=== PATIENT | female | born 1935 | race Caucasian/White ===

== ENCOUNTER 2016-06-15 16:43 | Inpatient (IN) | payer MEDICARE, OTHER ==
[~2016-06-15 16:43] MED LIST: ALDACTONE25 MG; ASPIRIN325 MG; AVANDIA8 MG; BENADRYL25 M3 PO; BENAZEPRIL HCL5 M2 PO; CALCIUM 1,0001 EAC1 PO; COREG12.5 M1 PO; COREG25 MG; COUMADIN3 M1 PO; DAPTOMYCIN500 MG IV; FEOSOL325 M1 PO; FISH OIL 1,0001 CA; GLUCOPHAGE XR500 M1 PO; GLUCOPHAGE XR500 MG; HYDROCHLOROTHIA25 MG; LASIX20 M1 PO; LIPITOR20 M1 PO; LIPITOR20 MG; LOTENSIN10 MG; MAGNESIUM OXID400 M1 PO; MEDROL4 M1 PO; OYST CAL D TABL; RANITIDINE HCL150 M3 PO; THERAGRAN-M PR1 EAC1 PO; VITAMIN B122500 MCG PO; VITAMIN C1000 M1 PO; VITAMIN D31000 UNI3 PO; ZINC50 M2 PO; ZYLOPRIM100 M1 PO
[2016-06-15] MEDS ORDERED: MAGNESIUM OXID400 M1 PO (17:32)
[2016-06-15] MEDS ORDERED: TYLENOL EXTRA500 M1 PO (17:32)
[2016-06-15] MEDS ORDERED: COREG6.25 M1 PO (17:32)
[2016-06-15] MEDS ORDERED: GLUCOPHAGE500 M3 PO (17:34)
[2016-06-15 19:30] LABS: BASO % 0.1 % (0-2); HGB-HEMOGLOBIN 6.6 gm/dl (12.0-15.5); IMMATURE GRANULOCYTES ABSOLUTE 0.13 tho/cmm (0-0.03); IMMATURE GRANULOCYTES PERCENT 0.7 % (0-0.3); LYMPH % 3.9 % (20-45); LYMPH ABSOLUTE COUNT 0.7 tho/cmm (0.8-4.5); MCH (MEAN CORPUSCULAR HGB) 31.9 pg (28.0-32.0); MEAN PLATELET VOLUME 12.3 cmc (9.4-12.4); MONOCYTE ABSOLUTE COUNT 0.4 tho/cmm (0.0-1.2); NEUTROPHIL ABSOLUTE COUNT 16.7 tho/cmm (1.6-8.0); NEUTROPHIL-AUTOMATED 16.7 tho/cmm (1.6-8.0); NEUTROPHILS % 93.3 % (40-80); RED BLOOD COUNT 2.07 mil/cmm (4.00-5.20); RED CELL DISTRIBUTION WIDTH 18.9 % (12.4-16.4); WHITE BLOOD COUNT 17.9 tho/cmm (4.0-10.0)
[2016-06-15 19:30] LABS: ABG CO2 ARTERIAL 20 mmol/L (21-27); ARTERIAL BLD GAS O2 SATURATION 98 % (95-98); ARTERIAL BLOOD GAS PCO2 28 mmHg (32-45); ARTERIAL PO2 95 mmHg (70-100); BICARBONATE 19 mmol/L (21-28); BLOOD GAS BASE EXCESS -4 mM/L (-/+3); PH 7.45 Units (7.35-7.45)
[2016-06-15 19:35] LABS: HCT-HEMATOCRIT 20.7 % (34.0-49.0); MCHC MEAN CORPUSCULAR HGB CONC 31.9 % (32.0-36.0); PLATELET COUNT 39 tho/cmm (150-450)
[2016-06-15 19:36] LABS: PROTHROMBIN TIME 78.6 SECONDS (9.0-13.6)
[2016-06-15 19:39] LABS: PARTIAL THROMBOPLASTIN TIME 40 SECONDS (22-38)
[2016-06-15 19:55] LABS: ALB/GLOB RATIO 0.5 (0.8-2.0); ALBUMIN 2.1 g/dl (3.5-5.0); ALKALINE PHOSPHATASE 67 U/L (33-138); ALT/SGPT 10 U/L (12-78); ANION GAP 14 mmol/L (0-20); AST/SGOT 15 U/L (10-40); BILIRUBIN,TOTAL 1.4 mg/dl (0-1.5); BLOOD UREA NITROGEN 35 mg/dl (6-24); CALCIUM 7.6 mg/dl (8.5-10.5); CARBON DIOXIDE-VENOUS 22 mmol/L (22-32); CHLORIDE 104 mmol/l (96-110); CREATININE 1.65 mg/dl (0.50-1.10); GLUCOSE 166 mg/dL (70-110); POTASSIUM 4.3 mmol/L (3.7-5.1); SODIUM 136 mmol/L (135-145); eGFR VALUE FOR BLACK 34 mL/Min
[2016-06-15 20:05] LABS: INR 6.4 INR (0.9-1.1)
[2016-06-15 20:13] LABS: PROCALCITONIN 7.64 ng/ml (0.05-0.09)
[2016-06-16 04:54] LABS: ANION GAP 15 mmol/L (0-20); BLOOD UREA NITROGEN 35 mg/dl (6-24); CARBON DIOXIDE-VENOUS 21 mmol/L (22-32); CHLORIDE 105 mmol/l (96-110); CREATININE 1.62 mg/dl (0.50-1.10); GLUCOSE 137 mg/dL (70-110); POTASSIUM 3.9 mmol/L (3.7-5.1); SODIUM 137 mmol/L (135-145); eGFR VALUE FOR BLACK 35 mL/Min
[2016-06-16 05:15] LABS: HGB-HEMOGLOBIN 6.2 gm/dl (12.0-15.5); IMMATURE GRANULOCYTES ABSOLUTE 0.08 tho/cmm (0-0.03); IMMATURE GRANULOCYTES PERCENT 0.6 % (0-0.3); LYMPH ABSOLUTE COUNT 0.9 tho/cmm (0.8-4.5); MCH (MEAN CORPUSCULAR HGB) 32.3 pg (28.0-32.0); MEAN PLATELET VOLUME 12.3 cmc (9.4-12.4); MONO % 4.3 % (0-12); MONOCYTE ABSOLUTE COUNT 0.5 tho/cmm (0.0-1.2); NEUTROPHILS % 88.1 % (40-80); RED BLOOD COUNT 1.92 mil/cmm (4.00-5.20); RED CELL DISTRIBUTION WIDTH 19.1 % (12.4-16.4); WHITE BLOOD COUNT 12.5 tho/cmm (4.0-10.0)
[2016-06-16 05:25] LABS: INR 7.7 INR (0.9-1.1); PROTHROMBIN TIME 95.7 SECONDS (9.0-13.6)
[2016-06-16 05:32] LABS: HCT-HEMATOCRIT 19.4 % (34.0-49.0)
[2016-06-16 05:33] LABS: PLATELET COUNT 37 tho/cmm (150-450)
[2016-06-16 08:02] LABS: URINE BILIRUBIN NEGATIVE (NEG); URINE BLOOD MODERATE (NEG); URINE GLUCOSE (UA) NEGATIVE (NEG); URINE KETONE NEGATIVE (NEG); URINE LEUKOCYTE ESTERASE NEGATIVE (NEG); URINE NITRITE NEGATIVE (NEG); URINE PROTEIN MODERATE (NEG); URINE SPECIFIC GRAVITY 1.015 (1.003-1.030)
[2016-06-16 08:06] LABS: URINE APPEARANCE HAZY; URINE COLOR DARK YELLOW
[2016-06-16 08:12] LABS: URINE TOTAL PROTEIN-RANDOM 68.7 mg/dl (<11.8)
[2016-06-16 08:14] LABS: URINE BACTERIA 1+; URINE RBC 0-2 /[HPF] (0-5); URINE WBC 0 /[HPF] (0-5)
[2016-06-16 11:52] LABS: URINE PRT/CR RATIO 0.62 Ratio (0.0-0.20)
[2016-06-17 03:54] LABS: EOS % 0.2 % (0-7); HGB-HEMOGLOBIN 6.9 gm/dl (12.0-15.5); IMMATURE GRANULOCYTES ABSOLUTE 0.03 tho/cmm (0-0.03); IMMATURE GRANULOCYTES PERCENT 0.5 % (0-0.3); LYMPH % 14.6 % (20-45); LYMPH ABSOLUTE COUNT 0.9 tho/cmm (0.8-4.5); MCH (MEAN CORPUSCULAR HGB) 32.4 pg (28.0-32.0); MCV (MEAN CELL VOLUME) 98.6 fl (82.0-96.0); MEAN PLATELET VOLUME 11.5 cmc (9.4-12.4); MONOCYTE ABSOLUTE COUNT 0.3 tho/cmm (0.0-1.2); NEUTROPHIL ABSOLUTE COUNT 4.8 tho/cmm (1.6-8.0); NEUTROPHIL-AUTOMATED 4.8 tho/cmm (1.6-8.0); NEUTROPHILS % 79.7 % (40-80); RED BLOOD COUNT 2.13 mil/cmm (4.00-5.20); RED CELL DISTRIBUTION WIDTH 19.5 % (12.4-16.4)
[2016-06-17 04:03] LABS: ANION GAP 15 mmol/L (0-20); BLOOD UREA NITROGEN 27 mg/dl (6-24); CALCIUM 6.9 mg/dl (8.5-10.5); CARBON DIOXIDE-VENOUS 20 mmol/L (22-32); CHLORIDE 105 mmol/l (96-110); CREATININE 1.33 mg/dl (0.50-1.10); GLUCOSE 147 mg/dL (70-110); POTASSIUM 3.4 mmol/L (3.7-5.1); SODIUM 137 mmol/L (135-145); eGFR VALUE FOR BLACK 44 mL/Min
[2016-06-17 04:06] LABS: MCHC MEAN CORPUSCULAR HGB CONC 32.9 % (32.0-36.0)
[2016-06-17 04:09] LABS: PLATELET COUNT 35 tho/cmm (150-450)
[2016-06-17 05:53] LABS: PROCALCITONIN 5.37 ng/ml (0.05-0.09)
[2016-06-17 08:16] LABS: INR 1.5 INR (0.9-1.1); PROTHROMBIN TIME 18.2 SECONDS (9.0-13.6)
[2016-06-17 17:48] LABS: HGB-HEMOGLOBIN 9.4 gm/dl (12.0-15.5)
[2016-06-18 05:07] LABS: EOS % 0.2 % (0-7); IMMATURE GRANULOCYTES ABSOLUTE 0.04 tho/cmm (0-0.03); IMMATURE GRANULOCYTES PERCENT 0.8 % (0-0.3); INR 1.3 INR (0.9-1.1); LYMPH % 18.3 % (20-45); LYMPH ABSOLUTE COUNT 0.9 tho/cmm (0.8-4.5); MCV (MEAN CELL VOLUME) 93.8 fl (82.0-96.0); MEAN PLATELET VOLUME 12.6 cmc (9.4-12.4); MONO % 3.6 % (0-12); MONOCYTE ABSOLUTE COUNT 0.2 tho/cmm (0.0-1.2); NEUTROPHIL ABSOLUTE COUNT 3.6 tho/cmm (1.6-8.0); NEUTROPHIL-AUTOMATED 3.6 tho/cmm (1.6-8.0); NEUTROPHILS % 77.1 % (40-80); PROTHROMBIN TIME 15.8 SECONDS (9.0-13.6); RED BLOOD COUNT 2.92 mil/cmm (4.00-5.20); WHITE BLOOD COUNT 4.7 tho/cmm (4.0-10.0)
[2016-06-18 05:13] LABS: HCT-HEMATOCRIT 27.4 % (34.0-49.0); MCHC MEAN CORPUSCULAR HGB CONC 32.8 % (32.0-36.0)
[2016-06-18 05:14] LABS: MCH (MEAN CORPUSCULAR HGB) 30.8 pg (28.0-32.0)
[2016-06-18 05:25] LABS: ANION GAP 15 mmol/L (0-20); BLOOD UREA NITROGEN 27 mg/dl (6-24); CALCIUM 7.5 mg/dl (8.5-10.5); CARBON DIOXIDE-VENOUS 20 mmol/L (22-32); CHLORIDE 107 mmol/l (96-110); GLUCOSE 110 mg/dL (70-110); POTASSIUM 3.6 mmol/L (3.7-5.1); SODIUM 138 mmol/L (135-145)
[2016-06-18 05:26] LABS: CREATININE 1.11 mg/dl (0.50-1.10); eGFR VALUE FOR BLACK 55 mL/Min
[2016-06-18 05:30] LABS: PLATELET COUNT 37 tho/cmm (150-450)
[2016-06-19 05:48] LABS: PROTHROMBIN TIME 21.9 SECONDS (9.0-13.6)
[2016-06-19 05:50] LABS: HCT-HEMATOCRIT 26.8 % (34.0-49.0); HGB-HEMOGLOBIN 8.8 gm/dl (12.0-15.5); IMMATURE GRANULOCYTES ABSOLUTE 0.02 tho/cmm (0-0.03); IMMATURE GRANULOCYTES PERCENT 0.5 % (0-0.3); LYMPH % 16.9 % (20-45); LYMPH ABSOLUTE COUNT 0.7 tho/cmm (0.8-4.5); MCHC MEAN CORPUSCULAR HGB CONC 32.8 % (32.0-36.0); MCV (MEAN CELL VOLUME) 94.4 fl (82.0-96.0); MEAN PLATELET VOLUME 11.9 cmc (9.4-12.4); MONO % 3.5 % (0-12); MONOCYTE ABSOLUTE COUNT 0.2 tho/cmm (0.0-1.2); NEUTROPHIL ABSOLUTE COUNT 3.4 tho/cmm (1.6-8.0); NEUTROPHIL-AUTOMATED 3.4 tho/cmm (1.6-8.0); NEUTROPHILS % 79.1 % (40-80); RED BLOOD COUNT 2.84 mil/cmm (4.00-5.20); RED CELL DISTRIBUTION WIDTH 18.6 % (12.4-16.4); WHITE BLOOD COUNT 4.3 tho/cmm (4.0-10.0)
[2016-06-19 05:56] LABS: ANION GAP 12 mmol/L (0-20); BLOOD UREA NITROGEN 28 mg/dl (6-24); CALCIUM 7.9 mg/dl (8.5-10.5); CARBON DIOXIDE-VENOUS 23 mmol/L (22-32); CHLORIDE 108 mmol/l (96-110); CREATININE 1.05 mg/dl (0.50-1.10); GLUCOSE 104 mg/dL (70-110); POTASSIUM 3.9 mmol/L (3.7-5.1); SODIUM 139 mmol/L (135-145); eGFR VALUE FOR BLACK 59 mL/Min
[2016-06-19 05:57] LABS: INR 1.9 INR (0.9-1.1)
[2016-06-19 06:02] LABS: PLATELET COUNT 35 tho/cmm (150-450)
[2016-06-20 05:00] LABS: EOS % 0.3 % (0-7); HCT-HEMATOCRIT 27.3 % (34.0-49.0); HGB-HEMOGLOBIN 8.9 gm/dl (12.0-15.5); IMMATURE GRANULOCYTES ABSOLUTE 0.02 tho/cmm (0-0.03); IMMATURE GRANULOCYTES PERCENT 0.5 % (0-0.3); LYMPH % 21.4 % (20-45); LYMPH ABSOLUTE COUNT 0.8 tho/cmm (0.8-4.5); MCH (MEAN CORPUSCULAR HGB) 31.1 pg (28.0-32.0); MCHC MEAN CORPUSCULAR HGB CONC 32.6 % (32.0-36.0); MCV (MEAN CELL VOLUME) 95.5 fl (82.0-96.0); MEAN PLATELET VOLUME 10.8 cmc (9.4-12.4); MONO % 4.1 % (0-12); MONOCYTE ABSOLUTE COUNT 0.2 tho/cmm (0.0-1.2); NEUTROPHIL ABSOLUTE COUNT 2.7 tho/cmm (1.6-8.0); NEUTROPHIL-AUTOMATED 2.7 tho/cmm (1.6-8.0); NEUTROPHILS % 73.7 % (40-80); RED BLOOD COUNT 2.86 mil/cmm (4.00-5.20); RED CELL DISTRIBUTION WIDTH 18.1 % (12.4-16.4); WHITE BLOOD COUNT 3.7 tho/cmm (4.0-10.0)
[2016-06-20 05:12] LABS: PLATELET COUNT 32 tho/cmm (150-450)
[2016-06-20 05:19] LABS: INR 2.6 INR (0.9-1.1)
[2016-06-20 05:24] LABS: PROTHROMBIN TIME 31.4 SECONDS (9.0-13.6)
[2016-06-20 05:36] LABS: ANION GAP 11 mmol/L (0-20); BLOOD UREA NITROGEN 23 mg/dl (6-24); CALCIUM 8.1 mg/dl (8.5-10.5); CARBON DIOXIDE-VENOUS 25 mmol/L (22-32); CHLORIDE 108 mmol/l (96-110); CREATININE 1.13 mg/dl (0.50-1.10); GLUCOSE 98 mg/dL (70-110); MAGNESIUM 1.2 mg/dl (1.3-2.6); POTASSIUM 3.9 mmol/L (3.7-5.1); SODIUM 140 mmol/L (135-145); eGFR VALUE FOR BLACK 54 mL/Min
[2016-06-21 05:04] LABS: EOS % 0.3 % (0-7); HGB-HEMOGLOBIN 8.9 gm/dl (12.0-15.5); IMMATURE GRANULOCYTES ABSOLUTE 0.02 tho/cmm (0-0.03); IMMATURE GRANULOCYTES PERCENT 0.5 % (0-0.3); LYMPH % 22.2 % (20-45); LYMPH ABSOLUTE COUNT 0.8 tho/cmm (0.8-4.5); MCH (MEAN CORPUSCULAR HGB) 31.6 pg (28.0-32.0); MCV (MEAN CELL VOLUME) 95.7 fl (82.0-96.0); MEAN PLATELET VOLUME 11.3 cmc (9.4-12.4); MONO % 4.3 % (0-12); MONOCYTE ABSOLUTE COUNT 0.2 tho/cmm (0.0-1.2); NEUTROPHIL ABSOLUTE COUNT 2.7 tho/cmm (1.6-8.0); NEUTROPHIL-AUTOMATED 2.7 tho/cmm (1.6-8.0); NEUTROPHILS % 72.7 % (40-80); RED BLOOD COUNT 2.82 mil/cmm (4.00-5.20); RED CELL DISTRIBUTION WIDTH 17.7 % (12.4-16.4); WHITE BLOOD COUNT 3.7 tho/cmm (4.0-10.0)
[2016-06-21 05:15] LABS: ANION GAP 8 mmol/L (0-20); BLOOD UREA NITROGEN 22 mg/dl (6-24); CALCIUM 8.1 mg/dl (8.5-10.5); CARBON DIOXIDE-VENOUS 27 mmol/L (22-32); CHLORIDE 106 mmol/l (96-110); CREATININE 1.06 mg/dl (0.50-1.10); GLUCOSE 100 mg/dL (70-110); PLATELET COUNT 39 tho/cmm (150-450); POTASSIUM 3.7 mmol/L (3.7-5.1); SODIUM 137 mmol/L (135-145); eGFR VALUE FOR BLACK 58 mL/Min
[2016-06-21 05:33] LABS: INR 3.6 INR (0.9-1.1)
[2016-06-21] MEDS ORDERED: SULFAMYLON SOL250 M1 AP (11:20)
[2016-06-21] MEDS ORDERED: BACTRIM DS TAB1 EAC2 PO (11:22)
[2016-06-21] MEDS ORDERED: AUGMENTIN 875-1 EAC2 PO (11:22)
== END 2016-06-21 17:03 | disposition home health service (06) | DRG 871 ==
LOC: CCU 16:43 → PCUB 06-17 17:32
PROVIDERS: Family Medicine; Internal Medicine Cardiovascular Disease; Internal Medicine Critical Care Medicine; ADMIT Internal Medicine
DX: A41.9 Sepsis, unspecified organism (principal); R65.21 Severe sepsis with septic shock; N17.9 Acute kidney failure, unspecified; I42.9 Cardiomyopathy, unspecified; D69.6 Thrombocytopenia, unspecified; E11.22 Type 2 diabetes mellitus with diabetic chronic kidney disease; I13.10 Hypertensive heart and chronic kidney disease without heart failure, with stage 1 through stage 4 chronic kidney disease, or unspecified chronic kidney disease; N18.3 Chronic kidney disease, stage 3 (moderate); E11.622 Type 2 diabetes mellitus with other skin ulcer; L03.90 Cellulitis, unspecified; L97.119 Non-pressure chronic ulcer of right thigh with unspecified severity; D46.9 Myelodysplastic syndrome, unspecified; D50.9 Iron deficiency anemia, unspecified; E78.5 Hyperlipidemia, unspecified; G47.33 Obstructive sleep apnea (adult) (pediatric); I36.1 Nonrheumatic tricuspid (valve) insufficiency; I27.2 Other secondary pulmonary hypertension; I25.10 Atherosclerotic heart disease of native coronary artery without angina pectoris; I48.0 Paroxysmal atrial fibrillation; Z95.810 Presence of automatic (implantable) cardiac defibrillator; Z87.891 Personal history of nicotine dependence; Z86.73 Personal history of transient ischemic attack (TIA), and cerebral infarction without residual deficits
CPT/HCPCS: C1751; G8978-GP-CJ; G8979-GP-CI; G8987-GO-CK; G8988-GO-CJ; J1815; J2405; J2543; J3370; J3430; J7030; J7050; J7999; P9016; P9045

== ENCOUNTER 2016-06-28 16:38 | Inpatient (IN) | payer MEDICARE, OTHER ==
[~2016-06-28 16:38] MED LIST changes: +AUGMENTIN 875-1 EAC2 PO; +BACTRIM DS TAB1 EAC2 PO; +COREG6.25 M1 PO; +GLUCOPHAGE500 M3 PO; +SULFAMYLON SOL250 M1 AP; +TYLENOL EXTRA500 M1 PO
[2016-06-29 02:07] LABS: URINE BILIRUBIN NEGATIVE (NEG); URINE BLOOD LARGE (NEG); URINE GLUCOSE (UA) NEGATIVE (NEG); URINE KETONE SMALL (NEG); URINE LEUKOCYTE ESTERASE POSITIVE (NEG); URINE NITRITE NEGATIVE (NEG); URINE PROTEIN MODERATE (NEG); URINE SPECIFIC GRAVITY 1.025 (1.003-1.030)
[2016-06-29 02:45] LABS: URINE APPEARANCE CLOUDY; URINE COLOR BROWN
[2016-06-29 02:47] LABS: URINE EPITHELIAL CELLS 0-1 /[HPF] (0-10); URINE RBC 0-1 /[HPF] (0-5); URINE WBC 0-1 /[HPF] (0-5)
[2016-06-29 02:48] LABS: URINE AMORPHOUS 2+
[2016-06-29 05:34] LABS: HCT-HEMATOCRIT 30.1 % (34.0-49.0); HGB-HEMOGLOBIN 9.7 gm/dl (12.0-15.5); IMMATURE GRANULOCYTES ABSOLUTE 0.06 tho/cmm (0-0.03); IMMATURE GRANULOCYTES PERCENT 1.1 % (0-0.3); LYMPH % 12.5 % (20-45); LYMPH ABSOLUTE COUNT 0.7 tho/cmm (0.8-4.5); MCH (MEAN CORPUSCULAR HGB) 31.2 pg (28.0-32.0); MCHC MEAN CORPUSCULAR HGB CONC 32.2 % (32.0-36.0); MCV (MEAN CELL VOLUME) 96.8 fl (82.0-96.0); MEAN PLATELET VOLUME 11.4 cmc (9.4-12.4); MONO % 1.1 % (0-12); MONOCYTE ABSOLUTE COUNT 0.1 tho/cmm (0.0-1.2); NEUTROPHIL ABSOLUTE COUNT 4.6 tho/cmm (1.6-8.0); NEUTROPHIL-AUTOMATED 4.6 tho/cmm (1.6-8.0); NEUTROPHILS % 85.3 % (40-80); RED BLOOD COUNT 3.11 mil/cmm (4.00-5.20); RED CELL DISTRIBUTION WIDTH 18.9 % (12.4-16.4); WHITE BLOOD COUNT 5.4 tho/cmm (4.0-10.0)
[2016-06-29 05:37] LABS: PLATELET COUNT 48 tho/cmm (150-450)
[2016-06-29 05:42] LABS: INR 4.6 INR (0.9-1.1); PROTHROMBIN TIME 55.5 SECONDS (9.0-13.6)
[2016-06-29 06:05] LABS: MAGNESIUM 1.7 mg/dl (1.3-2.6); PHOSPHOROUS 3.6 mg/dl (2.5-4.9)
[2016-06-29 06:08] LABS: ALB/GLOB RATIO 0.6 (0.8-2.0); ALBUMIN 2.9 g/dl (3.5-5.0); ALKALINE PHOSPHATASE 85 U/L (33-138); ALT/SGPT 21 U/L (12-78); ANION GAP 16 mmol/L (0-20); AST/SGOT 26 U/L (10-40); BILIRUBIN,TOTAL 1.1 mg/dl (0-1.5); BLOOD UREA NITROGEN 17 mg/dl (6-24); CARBON DIOXIDE-VENOUS 21 mmol/L (22-32); CHLORIDE 107 mmol/l (96-110); CREATINE PHOSPHOKINASE (CPK) 136 U/L (21-215); CREATININE 1.24 mg/dl (0.50-1.10); GLUCOSE 154 mg/dL (70-110); POTASSIUM 4.7 mmol/L (3.7-5.1); SODIUM 139 mmol/L (135-145); eGFR VALUE FOR BLACK 48 mL/Min
[2016-06-29] MEDS ORDERED: ACID CONTROL150 M2 PO (17:01)
[2016-06-29] MEDS ORDERED: GLUCOPHAGE500 M3 PO ×2 (17:01→17:02)
[2016-06-29] MEDS ORDERED: COUMADIN3 M1 PO (17:03)
[2016-06-29] MEDS ORDERED: VITAMIN D31000 UNI4 PO (17:03)
[2016-06-29] MEDS ORDERED: VITAMIN B-121000 MC1 PO (17:04)
[2016-06-29] MEDS ORDERED: ASCORBIC ACID500 M2 PO (17:04)
[2016-06-29] MEDS ORDERED: TYLENOL EXTRA500 M1 PO (17:05)
[2016-06-29] MEDS ORDERED: SULFAMYLON60 GM TOP (17:06)
[2016-06-29] MEDS ORDERED: MAGNESIUM200 M1 PO (17:07)
[2016-06-29] MEDS ORDERED: CERTAVITE-ANTI1 EACH PO (17:07)
[2016-06-29] MEDS ORDERED: LASIX20 M1 PO (17:08)
[2016-06-29] MEDS ORDERED: CALCIUM 500 +1 EA10 PO (17:09)
[2016-06-29] MEDS ORDERED: COREG12.5 M1 PO (17:09)
[2016-06-29] MEDS ORDERED: BENAZEPRIL HCL5 M2 PO (17:10)
[2016-06-29] MEDS ORDERED: ATORVASTATIN CA20 M1 PO (17:10)
[2016-06-29] MEDS ORDERED: ALLOPURINOL300 M1 PO (17:10)
[2016-06-30 06:23] LABS: HCT-HEMATOCRIT 26.8 % (34.0-49.0); HGB-HEMOGLOBIN 8.6 gm/dl (12.0-15.5); IMMATURE GRANULOCYTES ABSOLUTE 0.04 tho/cmm (0-0.03); IMMATURE GRANULOCYTES PERCENT 0.8 % (0-0.3); LYMPH % 14.7 % (20-45); LYMPH ABSOLUTE COUNT 0.7 tho/cmm (0.8-4.5); MCHC MEAN CORPUSCULAR HGB CONC 32.1 % (32.0-36.0); MCV (MEAN CELL VOLUME) 99.6 fl (82.0-96.0); MONO % 2.4 % (0-12); MONOCYTE ABSOLUTE COUNT 0.1 tho/cmm (0.0-1.2); NEUTROPHIL ABSOLUTE COUNT 4.1 tho/cmm (1.6-8.0); NEUTROPHIL-AUTOMATED 4.1 tho/cmm (1.6-8.0); NEUTROPHILS % 82.1 % (40-80); RED BLOOD COUNT 2.69 mil/cmm (4.00-5.20); RED CELL DISTRIBUTION WIDTH 19.6 % (12.4-16.4)
[2016-06-30 06:31] LABS: ANION GAP 15 mmol/L (0-20); BLOOD UREA NITROGEN 23 mg/dl (6-24); CALCIUM 8.4 mg/dl (8.5-10.5); CARBON DIOXIDE-VENOUS 21 mmol/L (22-32); CHLORIDE 112 mmol/l (96-110); CREATININE 1.25 mg/dl (0.50-1.10); GLUCOSE 112 mg/dL (70-110); POTASSIUM 4.5 mmol/L (3.7-5.1); SODIUM 143 mmol/L (135-145); eGFR VALUE FOR BLACK 48 mL/Min
[2016-06-30 06:37] LABS: PARTIAL THROMBOPLASTIN TIME 37 SECONDS (22-38)
[2016-06-30 06:56] LABS: INR 5.7 INR (0.9-1.1); PROTHROMBIN TIME 70.2 SECONDS (9.0-13.6)
[2016-07-01 06:07] LABS: HCT-HEMATOCRIT 27.1 % (34.0-49.0); HGB-HEMOGLOBIN 8.5 gm/dl (12.0-15.5); IMMATURE GRANULOCYTES ABSOLUTE 0.04 tho/cmm (0-0.03); IMMATURE GRANULOCYTES PERCENT 0.8 % (0-0.3); MCH (MEAN CORPUSCULAR HGB) 31.6 pg (28.0-32.0); MCHC MEAN CORPUSCULAR HGB CONC 31.4 % (32.0-36.0); MCV (MEAN CELL VOLUME) 100.7 fl (82.0-96.0); MONO % 3.8 % (0-12); MONOCYTE ABSOLUTE COUNT 0.2 tho/cmm (0.0-1.2); NEUTROPHIL ABSOLUTE COUNT 3.8 tho/cmm (1.6-8.0); NEUTROPHIL-AUTOMATED 3.8 tho/cmm (1.6-8.0); NEUTROPHILS % 75.4 % (40-80); RED BLOOD COUNT 2.69 mil/cmm (4.00-5.20); RED CELL DISTRIBUTION WIDTH 19.9 % (12.4-16.4)
[2016-07-01 06:10] LABS: PLATELET COUNT 47 tho/cmm (150-450)
[2016-07-01 06:13] LABS: ANION GAP 14 mmol/L (0-20); BLOOD UREA NITROGEN 26 mg/dl (6-24); CALCIUM 8.4 mg/dl (8.5-10.5); CARBON DIOXIDE-VENOUS 22 mmol/L (22-32); CHLORIDE 115 mmol/l (96-110); CREATININE 1.13 mg/dl (0.50-1.10); GLUCOSE 102 mg/dL (70-110); POTASSIUM 4.3 mmol/L (3.7-5.1); SODIUM 147 mmol/L (135-145); eGFR VALUE FOR BLACK 54 mL/Min
[2016-07-01 06:17] LABS: INR 1.9 INR (0.9-1.1); PARTIAL THROMBOPLASTIN TIME 26 SECONDS (22-38); PROTHROMBIN TIME 22.7 SECONDS (9.0-13.6)
[2016-07-01 06:31] LABS: PLATELET COUNT 48 tho/cmm (150-450)
[2016-07-02 06:00] LABS: INR 1.3 INR (0.9-1.1); PROTHROMBIN TIME 15.8 SECONDS (9.0-13.6)
[2016-07-02 06:03] LABS: BLOOD UREA NITROGEN 24 mg/dl (6-24); CALCIUM 8.3 mg/dl (8.5-10.5); CARBON DIOXIDE-VENOUS 22 mmol/L (22-32); CHLORIDE 113 mmol/l (96-110); SODIUM 144 mmol/L (135-145); eGFR VALUE FOR BLACK 56 mL/Min
[2016-07-02 06:13] LABS: ANION GAP 13 mmol/L (0-20); GLUCOSE 195 mg/dL (70-110)
[2016-07-03 06:42] LABS: HCT-HEMATOCRIT 25.8 % (34.0-49.0); HGB-HEMOGLOBIN 8.4 gm/dl (12.0-15.5); IMMATURE GRANULOCYTES ABSOLUTE 0.03 tho/cmm (0-0.03); IMMATURE GRANULOCYTES PERCENT 0.5 % (0-0.3); LYMPH % 17.2 % (20-45); MCH (MEAN CORPUSCULAR HGB) 32.4 pg (28.0-32.0); MCHC MEAN CORPUSCULAR HGB CONC 32.6 % (32.0-36.0); MCV (MEAN CELL VOLUME) 99.6 fl (82.0-96.0); MEAN PLATELET VOLUME 10.7 cmc (9.4-12.4); MONO % 6.9 % (0-12); MONOCYTE ABSOLUTE COUNT 0.4 tho/cmm (0.0-1.2); NEUTROPHIL ABSOLUTE COUNT 4.5 tho/cmm (1.6-8.0); NEUTROPHIL-AUTOMATED 4.5 tho/cmm (1.6-8.0); NEUTROPHILS % 75.4 % (40-80); RED BLOOD COUNT 2.59 mil/cmm (4.00-5.20); RED CELL DISTRIBUTION WIDTH 20.6 % (12.4-16.4); WHITE BLOOD COUNT 5.9 tho/cmm (4.0-10.0)
[2016-07-03 06:43] LABS: INR 1.3 INR (0.9-1.1); PLATELET COUNT 114 tho/cmm (150-450); PROTHROMBIN TIME 15.1 SECONDS (9.0-13.6)
[2016-07-03 06:55] LABS: ANION GAP 13 mmol/L (0-20); BLOOD UREA NITROGEN 19 mg/dl (6-24); CALCIUM 8.3 mg/dl (8.5-10.5); CARBON DIOXIDE-VENOUS 23 mmol/L (22-32); CHLORIDE 115 mmol/l (96-110); CREATININE 0.95 mg/dl (0.50-1.10); GLUCOSE 147 mg/dL (70-110); POTASSIUM 3.5 mmol/L (3.7-5.1); SODIUM 147 mmol/L (135-145); eGFR VALUE FOR BLACK 66 mL/Min
[2016-07-03] MEDS ORDERED: DILANTIN100 M1 PO (09:32)
[2016-07-03] MEDS ORDERED: ASPIRIN EC81 MG PO (09:33)
== END 2016-07-03 13:06 | DRG 64 ==
LOC: 5EB 16:38
PROVIDERS: Family Medicine; Internal Medicine; Nurse Practitioner; ADMIT Family Medicine
PROC: 5A09357 Assistance with Respiratory Ventilation, Less than 24 Consecutive Hours, Continuous Positive Airway Pressure (ICD-10-PCS; 2016-06-29)
PROC: 30233R1 Transfusion of Nonautologous Platelets into Peripheral Vein, Percutaneous Approach (ICD-10-PCS; principal; 2016-07-02)
DX: I63.9 Cerebral infarction, unspecified (principal); G93.40 Encephalopathy, unspecified; E11.22 Type 2 diabetes mellitus with diabetic chronic kidney disease; I27.2 Other secondary pulmonary hypertension; D69.6 Thrombocytopenia, unspecified; R56.9 Unspecified convulsions; N18.3 Chronic kidney disease, stage 3 (moderate); R13.10 Dysphagia, unspecified; Z51.5 Encounter for palliative care; Z66 Do not resuscitate; D46.9 Myelodysplastic syndrome, unspecified; I48.91 Unspecified atrial fibrillation; Z79.01 Long term (current) use of anticoagulants; Z95.810 Presence of automatic (implantable) cardiac defibrillator; E78.5 Hyperlipidemia, unspecified; I25.10 Atherosclerotic heart disease of native coronary artery without angina pectoris; I12.9 Hypertensive chronic kidney disease with stage 1 through stage 4 chronic kidney disease, or unspecified chronic kidney disease; G47.30 Sleep apnea, unspecified; Z87.891 Personal history of nicotine dependence; I07.1 Rheumatic tricuspid insufficiency; Z91.81 History of falling
CPT/HCPCS: G8996-GN-CN; G8997-GN-CM; J1815; J2060; J3430; J7030; J7050; P9031; P9033; Q2009; Q9967

== ENCOUNTER 2016-09-09 14:32 | Inpatient (IN) | payer MEDICARE, OTHER ==
[~2016-09-09 14:32] MED LIST changes: +ACID CONTROL150 M2 PO; +ALLOPURINOL300 M1 PO; +ASCORBIC ACID500 M2 PO; +ASPIRIN EC81 MG PO; +ATORVASTATIN CA20 M1 PO; +CALCIUM 500 +1 EA10 PO; +CERTAVITE-ANTI1 EACH PO; +DILANTIN100 M1 PO; +MAGNESIUM200 M1 PO; +SULFAMYLON60 GM TOP; +VITAMIN B-121000 MC1 PO; +VITAMIN D31000 UNI4 PO
[2016-09-09] MEDS ORDERED: ULTRAM50 M1 PO ×2 (14:40→14:52)
[2016-09-09] MEDS ORDERED: NEURONTIN100 M1 PO (14:49)
[2016-09-09] MEDS ORDERED: MELATIN3 MG PO (14:53)
[2016-09-09] MEDS ORDERED: MUCINEX DM ER1 EAC1 PO (16:36)
[2016-09-09] MEDS ORDERED: AMOXICILLIN500 M1 PO (16:37)
[2016-09-09] MEDS ORDERED: PROMETHAZINE-C118 ML PO (16:40)
[2016-09-09] MEDS ORDERED: GUAIFENESIN DM S5 M1 PO (16:41)
[2016-09-09 19:09] LABS: BASO % 0.4 % (0-2); EOS % 0.4 % (0-7); HCT-HEMATOCRIT 25.1 % (34.0-49.0); HGB-HEMOGLOBIN 7.8 gm/dl (12.0-15.5); LYMPH % 53.8 % (20-45); LYMPH ABSOLUTE COUNT 1.3 tho/cmm (0.8-4.5); MCH (MEAN CORPUSCULAR HGB) 34.7 pg (28.0-32.0); MCHC MEAN CORPUSCULAR HGB CONC 31.1 % (32.0-36.0); MCV (MEAN CELL VOLUME) 111.6 fl (82.0-96.0); MEAN PLATELET VOLUME 11.4 cmc (9.4-12.4); MONO % 7.1 % (0-12); MONOCYTE ABSOLUTE COUNT 0.2 tho/cmm (0.0-1.2); NEUTROPHIL ABSOLUTE COUNT 0.9 tho/cmm (1.6-8.0); NEUTROPHIL-AUTOMATED 0.9 tho/cmm (1.6-8.0); NEUTROPHILS % 38.3 % (40-80); RED BLOOD COUNT 2.25 mil/cmm (4.00-5.20); RED CELL DISTRIBUTION WIDTH 17.9 % (12.4-16.4); WHITE BLOOD COUNT 2.4 tho/cmm (4.0-10.0)
[2016-09-09 19:11] LABS: PROTHROMBIN TIME 11.2 SECONDS (9.0-13.6)
[2016-09-09 19:23] LABS: ALB/GLOB RATIO 0.6 (0.8-2.0); ALKALINE PHOSPHATASE 134 U/L (33-138); ALT/SGPT 19 U/L (12-78); ANION GAP 11 mmol/L (0-20); AST/SGOT 19 U/L (10-40); BILIRUBIN,TOTAL 0.2 mg/dl (0-1.5); BLOOD UREA NITROGEN 70 mg/dl (6-24); C-REACTIVE PROTEIN 2.1 mg/dl (0-0.9); CALCIUM 11.3 mg/dl (8.5-10.5); CARBON DIOXIDE-VENOUS 26 mmol/L (22-32); CHLORIDE 103 mmol/l (96-110); CREATININE 1.84 mg/dl (0.50-1.10); GLUCOSE 113 mg/dL (70-110); SODIUM 135 mmol/L (135-145); eGFR VALUE FOR BLACK 30 mL/Min
[2016-09-09 19:25] LABS: PLATELET COUNT 39 tho/cmm (150-450)
[2016-09-09 19:39] LABS: ESR-ERYTHROCYTE SED RATE 85 mm/hr (0-30)
[2016-09-09 19:46] LABS: PROCALCITONIN 0.11 ng/ml (0.05-0.09)
--- NOTE | 2016-09-09 23:03 | NUR ---
VIRTUAL CARE NOTE: ASSESSMENT DEFERRED. PT. SLEEPING.
[2016-09-10 06:10] LABS: INR 1.1 INR (0.9-1.1)
[2016-09-10 06:26] LABS: MAGNESIUM 1.7 mg/dl (1.8-2.6)
[2016-09-10 06:59] LABS: PROCALCITONIN 0.07 ng/ml (0.05-0.09)
[2016-09-10 07:38] LABS: TSH-THYROID STIMULATING HORM. 5.57 uIU/ml (0.40-3.80)
[2016-09-10 16:37] LABS: EOS % 0.5 % (0-7); HCT-HEMATOCRIT 23.6 % (34.0-49.0); HGB-HEMOGLOBIN 7.4 gm/dl (12.0-15.5); IMMATURE GRANULOCYTES ABSOLUTE 0.01 tho/cmm (0-0.03); IMMATURE GRANULOCYTES PERCENT 0.5 % (0-0.3); LYMPH % 46.4 % (20-45); MCH (MEAN CORPUSCULAR HGB) 34.7 pg (28.0-32.0); MCHC MEAN CORPUSCULAR HGB CONC 31.4 % (32.0-36.0); MCV (MEAN CELL VOLUME) 110.8 fl (82.0-96.0); MEAN PLATELET VOLUME 10.7 cmc (9.4-12.4); MONO % 8.7 % (0-12); MONOCYTE ABSOLUTE COUNT 0.2 tho/cmm (0.0-1.2); NEUTROPHIL ABSOLUTE COUNT 0.9 tho/cmm (1.6-8.0); NEUTROPHIL-AUTOMATED 0.9 tho/cmm (1.6-8.0); NEUTROPHILS % 43.9 % (40-80); RED BLOOD COUNT 2.13 mil/cmm (4.00-5.20); RED CELL DISTRIBUTION WIDTH 17.5 % (12.4-16.4); WHITE BLOOD COUNT 2.1 tho/cmm (4.0-10.0)
[2016-09-10 16:54] LABS: ALB/GLOB RATIO 0.6 (0.8-2.0); ALBUMIN 2.9 g/dl (3.5-5.0); ALKALINE PHOSPHATASE 123 U/L (33-138); ALT/SGPT 17 U/L (12-78); ANION GAP 12 mmol/L (0-20); AST/SGOT 21 U/L (10-40); BILIRUBIN,TOTAL 0.3 mg/dl (0-1.5); BLOOD UREA NITROGEN 62 mg/dl (6-24); CALCIUM 10.5 mg/dl (8.5-10.5); CARBON DIOXIDE-VENOUS 26 mmol/L (22-32); CHLORIDE 107 mmol/l (96-110); CREATININE 1.82 mg/dl (0.50-1.10); GLUCOSE 143 mg/dL (70-110); POTASSIUM 4.5 mmol/L (3.7-5.1); SODIUM 140 mmol/L (135-145); eGFR VALUE FOR BLACK 30 mL/Min
[2016-09-10 17:01] LABS: PLATELET COUNT 32 tho/cmm (150-450)
[2016-09-11 05:24] LABS: HGB-HEMOGLOBIN 6.8 gm/dl (12.0-15.5); MCH (MEAN CORPUSCULAR HGB) 35.2 pg (28.0-32.0); MCV (MEAN CELL VOLUME) 110.4 fl (82.0-96.0); MEAN PLATELET VOLUME 12.4 cmc (9.4-12.4); NEUTROPHIL-AUTOMATED 0.7 tho/cmm (1.6-8.0); RED BLOOD COUNT 1.93 mil/cmm (4.00-5.20); RED CELL DISTRIBUTION WIDTH 17.5 % (12.4-16.4)
[2016-09-11 05:25] LABS: INR 1.1 INR (0.9-1.1); PROTHROMBIN TIME 12.6 SECONDS (9.0-13.6)
[2016-09-11 05:31] LABS: HCT-HEMATOCRIT 21.3 % (34.0-49.0); MCHC MEAN CORPUSCULAR HGB CONC 31.9 % (32.0-36.0); PLATELET COUNT 32 tho/cmm (150-450); WHITE BLOOD COUNT 1.9 tho/cmm (4.0-10.0)
[2016-09-11 05:38] LABS: ALB/GLOB RATIO 0.6 (0.8-2.0); ALBUMIN 2.6 g/dl (3.5-5.0); ALKALINE PHOSPHATASE 103 U/L (33-138); ALT/SGPT 16 U/L (12-78); ANION GAP 12 mmol/L (0-20); AST/SGOT 18 U/L (10-40); BILIRUBIN,TOTAL 0.4 mg/dl (0-1.5); BLOOD UREA NITROGEN 57 mg/dl (6-24); CALCIUM 9.5 mg/dl (8.5-10.5); CARBON DIOXIDE-VENOUS 25 mmol/L (22-32); CHLORIDE 106 mmol/l (96-110); CREATININE 1.85 mg/dl (0.50-1.10); GLUCOSE 82 mg/dL (70-110); MAGNESIUM 1.9 mg/dl (1.8-2.6); POTASSIUM 4.1 mmol/L (3.7-5.1); SODIUM 139 mmol/L (135-145); eGFR VALUE FOR BLACK 29 mL/Min
[2016-09-11 08:38] LABS: BAND % 3 % (0-20); BAND ABSOLUTE COUNT 0.1 tho/cmm (0-2.0)
--- NOTE | 2016-09-11 15:34 | NUR ---
VIRTUAL CARE NOTE: PT AWAKE RESTING IN BED, C/O LL LEG BURNING. MAR REVIEWED, NOTED 1 NORCO GIVEN ~ 1500-DISCUSSED W/ PT, PT REQUESTS 2ND NORCO-NURSE PAGED. PT LAYING ON LT SIDE W/ PILLOW UNDER LT LEG, ENC PT TO REPOSITION TO RT SIDE TO RELIEVE PRESSURE OFF LT LEG TO HELP W/ DISCOMFORT-AIDES IN TO HELP REPOSITION. VN WILL CONTINUE TO MONITOR ELECTRONIC RECORD AND FOLLOW W/ PT
--- NOTE | 2016-09-11 19:13 | NUR ---
VIRTUAL CARE NOTE: ASSESSMENT DEFERRED. PT. SLEEPING.
[2016-09-12 06:40] LABS: BASO % 0.5 % (0-2); HCT-HEMATOCRIT 28.8 % (34.0-49.0); HGB-HEMOGLOBIN 9.3 gm/dl (12.0-15.5); LYMPH % 44.8 % (20-45); LYMPH ABSOLUTE COUNT 0.9 tho/cmm (0.8-4.5); MCH (MEAN CORPUSCULAR HGB) 32.9 pg (28.0-32.0); MCHC MEAN CORPUSCULAR HGB CONC 32.3 % (32.0-36.0); MCV (MEAN CELL VOLUME) 102.1 fl (82.0-96.0); MEAN PLATELET VOLUME 12.2 cmc (9.4-12.4); MONO % 10.4 % (0-12); MONOCYTE ABSOLUTE COUNT 0.2 tho/cmm (0.0-1.2); NEUTROPHIL ABSOLUTE COUNT 0.9 tho/cmm (1.6-8.0); NEUTROPHIL-AUTOMATED 0.9 tho/cmm (1.6-8.0); NEUTROPHILS % 43.3 % (40-80); RED BLOOD COUNT 2.82 mil/cmm (4.00-5.20); RED CELL DISTRIBUTION WIDTH 20.6 % (12.4-16.4)
[2016-09-12 06:41] LABS: INR 1.1 INR (0.9-1.1); PLATELET COUNT 28 tho/cmm (150-450); PROTHROMBIN TIME 12.4 SECONDS (9.0-13.6)
[2016-09-12 06:49] LABS: ANION GAP 13 mmol/L (0-20); BLOOD UREA NITROGEN 46 mg/dl (6-24); C-REACTIVE PROTEIN 2.6 mg/dl (0-0.9); CALCIUM 9.2 mg/dl (8.5-10.5); CARBON DIOXIDE-VENOUS 24 mmol/L (22-32); CHLORIDE 107 mmol/l (96-110); CREATININE 1.99 mg/dl (0.50-1.10); GLUCOSE 97 mg/dL (70-110); POTASSIUM 3.7 mmol/L (3.7-5.1); SODIUM 140 mmol/L (135-145); eGFR VALUE FOR BLACK 27 mL/Min
[2016-09-12 07:22] LABS: PROCALCITONIN 0.11 ng/ml (0.05-0.09)
--- NOTE | 2016-09-12 19:10 | NUR ---
VIRTUAL CARE NOTE: PT. IN BED, IS HAVING PAIN IN HER LEG AND DOESN'T KNOW WHEN HER NURSE WILL BE BACK WITH HER MEDICATIONS. IS NOT PASSING FLATUS OR GAS, AND WALKS ONLY WHEN THE STAFF GETS HER UP. EDUCATION REVIEWED NOT TO GET OUT OF BED WITHOUT ASSISTANCE. DENIES FURTHER QUESTIONS. RN ON UNIT PAGED. INSTRUCTED TO CALL FOR FUTURE NEEDS. STATES VERBAL UNDERSTANDING.
[2016-09-13 05:09] LABS: PROTHROMBIN TIME 11.8 SECONDS (9.0-13.6)
[2016-09-13 05:14] LABS: HCT-HEMATOCRIT 26.8 % (34.0-49.0); HGB-HEMOGLOBIN 8.8 gm/dl (12.0-15.5); LYMPH % 43.9 % (20-45); LYMPH ABSOLUTE COUNT 0.9 tho/cmm (0.8-4.5); MCHC MEAN CORPUSCULAR HGB CONC 32.8 % (32.0-36.0); MCV (MEAN CELL VOLUME) 105.1 fl (82.0-96.0); MEAN PLATELET VOLUME 10.2 cmc (9.4-12.4); MONO % 8.2 % (0-12); MONOCYTE ABSOLUTE COUNT 0.2 tho/cmm (0.0-1.2); NEUTROPHIL ABSOLUTE COUNT 0.9 tho/cmm (1.6-8.0); NEUTROPHIL-AUTOMATED 0.9 tho/cmm (1.6-8.0); NEUTROPHILS % 46.9 % (40-80); RED BLOOD COUNT 2.55 mil/cmm (4.00-5.20); RED CELL DISTRIBUTION WIDTH 20.4 % (12.4-16.4)
[2016-09-13 05:19] LABS: ANION GAP 12 mmol/L (0-20); BLOOD UREA NITROGEN 39 mg/dl (6-24); C-REACTIVE PROTEIN 2.7 mg/dl (0-0.9); CALCIUM 8.5 mg/dl (8.5-10.5); CARBON DIOXIDE-VENOUS 24 mmol/L (22-32); CHLORIDE 108 mmol/l (96-110); CREATININE 1.75 mg/dl (0.50-1.10); GLUCOSE 94 mg/dL (70-110); POTASSIUM 3.4 mmol/L (3.7-5.1); SODIUM 141 mmol/L (135-145); eGFR VALUE FOR BLACK 32 mL/Min
[2016-09-13 05:52] LABS: MCH (MEAN CORPUSCULAR HGB) 34.5 pg (28.0-32.0)
[2016-09-13 05:55] LABS: PLATELET COUNT 24 tho/cmm (150-450)
[2016-09-13 06:31] LABS: PROCALCITONIN 0.09 ng/ml (0.05-0.09)
[2016-09-13] MEDS ORDERED: BACTRIM DS TAB1 EAC2 PO (14:11)
== END 2016-09-13 14:20 | DRG 300 ==
LOC: 5WD 14:32
PROVIDERS: Family Medicine; Internal Medicine; Internal Medicine Cardiovascular Disease; Internal Medicine Medical Oncology; ADMIT Family Medicine
PROC: 02HV33Z Insertion of Infusion Device into Superior Vena Cava, Percutaneous Approach (ICD-10-PCS; principal; 2016-09-09)
PROC: 5A09357 Assistance with Respiratory Ventilation, Less than 24 Consecutive Hours, Continuous Positive Airway Pressure (ICD-10-PCS; 2016-09-09)
PROC: 30243N1 Transfusion of Nonautologous Red Blood Cells into Central Vein, Percutaneous Approach (ICD-10-PCS; 2016-09-12)
DX: E11.52 Type 2 diabetes mellitus with diabetic peripheral angiopathy with gangrene (principal); D61.818 Other pancytopenia; E11.628 Type 2 diabetes mellitus with other skin complications; I13.0 Hypertensive heart and chronic kidney disease with heart failure and stage 1 through stage 4 chronic kidney disease, or unspecified chronic kidney disease; N18.3 Chronic kidney disease, stage 3 (moderate); I27.2 Other secondary pulmonary hypertension; I50.22 Chronic systolic (congestive) heart failure; E44.1 Mild protein-calorie malnutrition; E83.52 Hypercalcemia; Z66 Do not resuscitate; Z86.73 Personal history of transient ischemic attack (TIA), and cerebral infarction without residual deficits; Z79.84 Long term (current) use of oral hypoglycemic drugs; Z79.01 Long term (current) use of anticoagulants; Z95.810 Presence of automatic (implantable) cardiac defibrillator; E78.5 Hyperlipidemia, unspecified; I25.10 Atherosclerotic heart disease of native coronary artery without angina pectoris; G47.33 Obstructive sleep apnea (adult) (pediatric); Z88.8 Allergy status to other drugs, medicaments and biological substances; D46.9 Myelodysplastic syndrome, unspecified; I07.1 Rheumatic tricuspid insufficiency; I48.2 Chronic atrial fibrillation; Z79.82 Long term (current) use of aspirin; Z79.02 Long term (current) use of antithrombotics/antiplatelets; Z95.2 Presence of prosthetic heart valve; Z53.8 Procedure and treatment not carried out for other reasons; Z91.81 History of falling; Z68.31 Body mass index [BMI] 31.0-31.9, adult; S81.802A Unspecified open wound, left lower leg, initial encounter
CPT/HCPCS: C1751; C8929; J1815; J2270; J2543; J7050; P9016